=== PATIENT | female | born 1970 | race Caucasian/White ===

== ENCOUNTER 2021-04-20 20:13 | Emergency (ER) | payer OTHER ==
[~2021-04-20] VITALS: Ht 170.2 cm; Wt 79.4 kg
[~2021-04-20 20:13] MED LIST: ASPIRIN EC325 MG PO; AZITHROMYCIN 2250 MG PO; FLEXERIL PO; HYDROCODONE-AP1 EAC6 PO; MEDROLDOSEPACK PO; NOHOMEMEDICATIONS; NORVASC5 MG PO; PEPCID20 MG PO; PERCOCET 5-3251 EACH PO; PREDNISONE 20 M20 MG PO; PROAIR HFA8.5 GM IH; PROMETHAZINE-C120 ML PO; TESSALON PERLE100 MG PO; TRAMADOL 50 MG50 MG PO; VENTOLIN HFA 1818 GM INH; ZPAK PO
[2021-04-20 20:31] LABS: URINE BLOOD 3+ (Negative); URINE COLOR YELLOW; URINE GLUCOSE-RANDOM NEGATIVE (Negative); URINE KETONES TRACE (Negative); URINE LEUKOCYTES-REFLEX NEGATIVE (Negative); URINE NITRITE-REFLEX NEGATIVE (Negative); URINE PROTEIN 1+ (Negative); URINE SPECIFIC GRAVITY >= 1.030 (1.005-1.030)
[2021-04-20] MEDS ORDERED: HYDROCHLOROTH12.5 M2 PO (20:31)
[2021-04-20] MEDS ORDERED: METFORMIN HCL500 M3 PO (20:31)
[2021-04-20 20:32] LABS: ICTOTEST (BILI CONFIRMATORY) Negative (Negative); URINE BILIRUBIN 1+ (Negative); URINE CLARITY HAZY
[2021-04-20 20:33] LABS: SQUAMOUS 4-10 Moderate /LPF (0-3); URINE RBC >20 Many /HPF (0-2); URINE WBC-REFLEX 0-5 Rare /HPF (0-5)
[2021-04-20 20:34] LABS: BACTERIA-REFLEX None Seen /HPF (None Seen); CASTS None Seen /LPF (None Seen); CRYSTALS None Seen /LPF (None Seen)
[2021-04-20 20:45] LABS: CALCIUM 9.3 mg/dL (8.5-10.1); CREATININE 1.1 mg/dL (0.6-1.3); POTASSIUM 4.2 mmol/L (3.5-5.1)
[2021-04-20 20:50] LABS: ALBUMIN 3.8 g/dL (3.4-5.0); TOTAL BILIRUBIN 0.2 mg/dL (<0.1-1.0); TOTAL PROTEIN 7.5 g/dL (6.4-8.2)
[2021-04-20 21:17] LABS: ABSOLUTE EOSINOPHILS 0.3 thou/uL (0.0-0.7); ABSOLUTE MONOCYTES 0.4 thou/uL (0.0-1.2); BASOPHILS 0.4 %; EOSINOPHILS 3.1 %; HEMATOCRIT 40.2 % (37.0-47.0); LYMPHOCYTES 8.9 %; MCH 30.5 pg (26.0-34.0); MCHC 34.8 g/dL (28.0-37.0); MCV 87.6 fL (80.0-100.0); MONOCYTES 3.8 %; MPV 7.9 fl. (7.2-11.1); NUCLEATED RBCS 0 /100WBC; PLATELET COUNT* 285 thou/uL (150-400); POLYS 83.8 %; RBC 4.59 mil/uL (4.20-5.00); RDW-CV 13.4 % (10.5-14.5); WBC 10.7 thou/uL (4.0-11.0)
[2021-04-20] MEDS ORDERED: NORCO5 PO (21:20)
[2021-04-20 21:28] VITALS: BP 125/65
[2021-04-21] MEDS ORDERED: NORCO5 PO (14:18)
== END 2021-04-20 21:29 | disposition home or self-care (01) ==
LOC: M.ERS 20:13
PROVIDERS: Physician Assistant
DX: R10.84 Generalized abdominal pain (principal); Z98.51 Tubal ligation status; Z87.442 Personal history of urinary calculi; Z91.041 Radiographic dye allergy status